=== PATIENT | male | born 1960 | race Caucasian/White ===

== ENCOUNTER 2016-03-31 08:18 | Day surgery (SDC) | payer OTHER ==
[~2016-03-31] VITALS: Ht 175.3 cm; Wt 76.2 kg
[~2016-03-31 08:18] MED LIST: ANAPROX DS550 M1 PO; BACTRIM,SEPT1 TABLET PO; KEFLEX500 MG PO; MOBIC7.5 MG PO; NAPROSYN500 MG PO; NEURONTIN100 MG PO; NOHOMEMEDS; OXYCODONE HCL15 MG PO; TRAMADOL HCL50 MG PO; VOLTAREN75 MG PO
== END 2016-03-31 09:26 | disposition home or self-care (01) ==
LOC: PAIN 08:18 → SDC 08:30 → PAIN 09:26
PROC: 3E0U33Z Introduction of Anti-inflammatory into Joints, Percutaneous Approach (ICD-10-PCS; principal; 2016-03-31)
DX: M16.11 Unilateral primary osteoarthritis, right hip (principal); M50.20 Other cervical disc displacement, unspecified cervical region; F41.1 Generalized anxiety disorder; R20.0 Anesthesia of skin
CPT/HCPCS: J1030; J2250; J3010; S0020

== ENCOUNTER 2016-09-08 09:19 | Day surgery (SDC) | payer OTHER ==
[~2016-09-08] VITALS: Ht 177.8 cm; Wt 74.8 kg
[~2016-09-08 09:19] MED LIST changes: +GABAPENTIN400 MG PO; +NAPROXEN500 MG PO; +OXYCODONE-ACET1 EACH PO
== END 2016-09-08 11:20 | disposition home or self-care (01) ==
LOC: PAIN 09:19 → SDC 10:15 → PAIN 10:15
PROC: 3E0U33Z Introduction of Anti-inflammatory into Joints, Percutaneous Approach (ICD-10-PCS; principal; 2016-09-08)
DX: M16.11 Unilateral primary osteoarthritis, right hip (principal); M25.551 Pain in right hip; M25.552 Pain in left hip; M54.5 Low back pain; F17.200 Nicotine dependence, unspecified, uncomplicated; R20.0 Anesthesia of skin; F10.21 Alcohol dependence, in remission
CPT/HCPCS: J1030; S0020

== ENCOUNTER 2016-10-13 11:59 | Day surgery (SDC) | payer OTHER ==
[~2016-10-13] VITALS: Ht 177.8 cm; Wt 74.8 kg
== END 2016-10-13 13:49 | disposition home or self-care (01) ==
LOC: PAIN 11:59 → SDC 12:30 → PAIN 12:30
DX: M16.11 Unilateral primary osteoarthritis, right hip (principal); M25.552 Pain in left hip; M51.36 Other intervertebral disc degeneration, lumbar region; M54.5 Low back pain; M47.22 Other spondylosis with radiculopathy, cervical region; M50.122 Cervical disc disorder at C5-C6 level with radiculopathy; Z79.891 Long term (current) use of opiate analgesic; F17.200 Nicotine dependence, unspecified, uncomplicated; F10.21 Alcohol dependence, in remission
CPT/HCPCS: J1030; J2250; J3010; S0020

== ENCOUNTER 2017-05-30 09:48 | Day surgery (SDC) | payer OTHER ==
[~2017-05-30] VITALS: Ht 175.3 cm; Wt 78.0 kg
[~2017-05-30 09:48] MED LIST changes: -GABAPENTIN400 MG PO; +NEURONTIN600 MG PO; +SUBOXONE 4 MG-1 EACH SL
== END 2017-05-30 10:30 | disposition home or self-care (01) ==
LOC: PAIN 09:48 → SDC 10:45 → PAIN 10:45
DX: M16.11 Unilateral primary osteoarthritis, right hip (principal); M54.12 Radiculopathy, cervical region; F11.20 Opioid dependence, uncomplicated; F17.200 Nicotine dependence, unspecified, uncomplicated
CPT/HCPCS: J1030; S0020

== ENCOUNTER 2017-10-05 15:11 | Emergency (ER) | payer OTHER ==
[~2017-10-05] VITALS: Ht 175.3 cm; Wt 70.7 kg
[2017-10-05 15:16] VITALS: BP 143/80
[2017-10-05] MEDS ORDERED: LIBRIUM25 MG PO (17:13)
== END 2017-10-05 19:53 | disposition home or self-care (01) ==
LOC: EME 15:11
DX: M16.11 Unilateral primary osteoarthritis, right hip (principal); F10.10 Alcohol abuse, uncomplicated; E11.9 Type 2 diabetes mellitus without complications; B19.20 Unspecified viral hepatitis C without hepatic coma; F31.9 Bipolar disorder, unspecified; F17.200 Nicotine dependence, unspecified, uncomplicated; Z79.891 Long term (current) use of opiate analgesic; Z87.19 Personal history of other diseases of the digestive system; Z98.890 Other specified postprocedural states; Z86.73 Personal history of transient ischemic attack (TIA), and cerebral infarction without residual deficits; Z88.0 Allergy status to penicillin
CPT/HCPCS: 73502; 99281; 99284

== ENCOUNTER 2017-10-10 13:27 | Emergency (ER) | payer OTHER ==
[~2017-10-10] VITALS: Ht 177.8 cm; Wt 72.7 kg
[~2017-10-10 13:27] MED LIST changes: +LIBRIUM25 MG PO
[2017-10-10 19:07] VITALS: BP 147/85
== END 2017-10-10 19:08 | disposition home or self-care (01) ==
LOC: EME 13:27
DX: F10.129 Alcohol abuse with intoxication, unspecified (principal); Y90.9 Presence of alcohol in blood, level not specified; E11.9 Type 2 diabetes mellitus without complications; Z86.73 Personal history of transient ischemic attack (TIA), and cerebral infarction without residual deficits; Z88.0 Allergy status to penicillin; F17.200 Nicotine dependence, unspecified, uncomplicated
CPT/HCPCS: 99281; 99284